=== PATIENT | female | born 1955 | race Caucasian/White ===

== ENCOUNTER → 2017-03-15 | Outpatient (CLI) | payer OTHER | END | disposition home or self-care (01) | LOC: YCFC.O 11:24 | PROVIDERS: ATTEND Nurse Practitioner Family | DX: E11.9 Type 2 diabetes mellitus without complications (principal); I10 Essential (primary) hypertension; E78.5 Hyperlipidemia, unspecified ==

== ENCOUNTER 2018-02-08 18:19 | Emergency (ER) | payer OTHER ==
--- NOTE | 2018-02-08 18:33 | ED.PDOC ---
History of Present Illness - General Chief Complaint: Neuro Symptoms/Deficits Stated Complaint: lightheaded/left arm numbness Time Seen by Provider: 02/08/18 18:33 Source: patient, EMS Exam Limitations: no limitations - History of Present Illness Initial Comments: Thu Wren 62 y/o female brought by ems stating she was watching TV at home became light headed and felt numbness on left hand which went up to right forearm about an hour ago lasting for about 1-2 minutes then on arrival here at ER stating her symptoms better.Denies weakness,slurred speech,facial drooping , chest pains,diaphoresis,or blurry vision,SOB. Severity: moderate Improving Factors: nothing Worsening Factors: nothing Associated Symptoms: other - see hpi Allergies/Adverse Reactions: Allergies NO KNOWN ALLERGY Allergy (Verified 01/18/13 15:20) Home Medications: Ambulatory Orders Cetirizine HCl [ZyrTEC] 10 mg PO DAILY 04/16/16 Ciprofloxacin [Cipro] 500 mg PO BID #20 tab 04/16/16 Crestor PO BEDTIME 04/16/16 Esomeprazole Magnesium [Nexium] 40 mg PO DAILY 04/16/16 Iron PO DAILY 04/16/16 Losartan Potassium PO DAILY 04/16/16 Meclizine HCl PO TID PRN 04/16/16 Toprol Xl PO DAILY 04/16/16 metFORMIN HCL PO BID 04/16/16 metroNIDAZOLE [Flagyl] 500 mg PO Q6HRS #40 tab 04/16/16 Review of Systems - Review of Systems Constitutional: States: no symptoms reported EENTM: States: no symptoms reported Respiratory: States: no symptoms reported Cardiology: States: no symptoms reported Gastrointestinal/Abdominal: States: no symptoms reported Genitourinary: States: no symptoms reported Musculoskeletal: States: no symptoms reported Skin: States: no symptoms reported Neurological: States: see HPI All other Systems: Reviewed and Negative, No Change from Baseline Past Medical History (General) - Patient Medical History Hx Seizures: No Hx Stroke: No Hx Dementia: No Hx Asthma: No Hx of COPD: No Hx Cardiac Disorders: No Hx Congestive Heart Failure: No Hx Pacemaker: No Hx Hypertension: Yes Hx Thyroid Disease: No Hx Diabetes: Yes - NIDDM Hx Gastroesophageal Reflux: Yes Hx Renal Disease: No Hx of HIV: No Hx MRSA: No Surgical History: appendectomy, cholecystectomy, tonsillectomy - Vaccination History Hx Influenza Vaccination: No Hx Pneumococcal Vaccination: Yes - 2013 - Social History Hx Tobacco Use: No Hx Alcohol Use: No Hx Substance Use: No Hx Physical Abuse: No Hx Emotional Abuse: No - Activities of Daily Living Grooming Ability: Independent Eating (Feeding) Ability: Independent Toileting Ability: Independent Family Medical History - Family History Mother Family History: Unknown Living Status: Hx Family Hypertension: Yes - parents Hx Family Diabetes: Yes - parents Physical Exam - Physical Exam General Appearance: Alert, Comfortable, No apparent distress Eye Exam: bilateral normal Ears, Nose, Throat: hearing grossly normal, normal ENT inspection, normal pharynx Neck: non-tender, full range of motion, supple, normal inspection Respiratory: lungs clear, normal breath sounds, no respiratory distress Cardiovascular/Chest: normal peripheral pulses, regular rate, rhythm, no murmur Peripheral Pulses: radial,right: 2+, radial,left: 2+ Gastrointestinal/Abdominal: normal bowel sounds, non tender, soft, no organomegaly Back Exam: no CVA tenderness, no vertebral tenderness Extremity: non-tender, no pedal edema, no calf tenderness Neurologic: internet marketing strategist II-XII nml as tested, no motor/sensory deficits, alert, oriented x 3, other - negative pronator drift Skin Exam: normal color, warm/dry Progress - Progress Progress: 02/08/18 19:09 02/08/18 18:33 Head [CT] Stat Chest,1 View [RAD] Stat URINALYSIS Stat 02/08/18 18:45 EKG STAT 02/08/18 18:53 CARDIAC PANEL,ER Stat HEPATIC FUNCTION PANEL Stat Laboratory Results - last 24 hr 02/08/18 18:53 WBC 6.7 RBC 4.48 Hgb 13.5 Hct 40.6 MCV 90.7 MCH 30.2 MCHC 33.3 RDW 16.2 H Plt Count 194 MPV 10.2 Absolute Neuts (auto) 4.10 Absolute Lymphs (auto) 1.80 Absolute Monos (auto) 0.40 Absolute Eos (auto) 0.30 Absolute Basos (auto) 0.10 Neutrophils % 61.6 Lymphocytes % 26.2 Monocytes % 6.5 Eosinophils % 4.7 Basophils % 1.0 02/08/18 19:09 Vital Signs - 24 hr 02/08/18 18:33 Temperature 99.4 F Pulse Rate [ 94 H right brachial] Blood Pressure 176/106 [right radial] O2 Sat by Pulse 99 Oximetry 02/08/18 20:57 Vital Signs - 24 hr 02/08/18 18:33 Temperature 99.4 F Pulse Rate [ 94 H right brachial] Blood Pressure 176/106 [right radial] O2 Sat by Pulse 99 Oximetry - Results/Orders Results/Orders: 02/08/18 18:33 URINALYSIS Stat 02/08/18 18:45 EKG STAT Laboratory Results - last 24 hr 02/08/18 18:53 WBC 6.7 RBC 4.48 Hgb 13.5 Hct 40.6 MCV 90.7 MCH 30.2 MCHC 33.3 RDW 16.2 H Plt Count 194 MPV 10.2 Absolute Neuts (auto) 4.10 Absolute Lymphs (auto) 1.80 Absolute Monos (auto) 0.40 Absolute Eos (auto) 0.30 Absolute Basos (auto) 0.10 Neutrophils % 61.6 Lymphocytes % 26.2 Monocytes % 6.5 Eosinophils % 4.7 Basophils % 1.0 PT 10.6 INR 0.910 PTT (SP) 32.0 Sodium 141 Potassium 4.0 Chloride 107 Carbon Dioxide 28 Anion Gap 10.0 L BUN 23 H Creatinine 0.86 BUN/Creatinine Ratio 26.7 H Random Glucose 129 H Serum Osmolality 286.6 Calcium 8.9 Magnesium 1.9 Total Bilirubin 0.5 Direct Bilirubin < 0.1 Indirect Bilirubin 0.4 AST 16 ALT 10 Alkaline Phosphatase 72 Creatine Kinase 32 CK-MB (CK-2) 1.1 CK-MB (CK-2) % Not Reportable Troponin I < 0.02 Serum Total Protein 7.2 Albumin 3.5 - EKG/XRAY/CT EKG: Sinus, nonspecific ST T wave Chg Comments: Heart rate 85 CT Ordered: Yes - head-Ct/no infarct or hemorrhage Departure - Departure Clinical Impression: Light headedness, Numbness and tingling in right hand Time of Disposition: 22:45 Disposition: Discharge to Home or Self Care Condition: Fair Departure Forms: ED Discharge - Pt. Copy, Patient Portal Self Enrollment Referrals: Mandy Elizalde NP [Primary Care Provider] - 1-2 Weeks Home Medications: Ambulatory Orders Cetirizine HCl [ZyrTEC] 10 mg PO DAILY 04/16/16 Ciprofloxacin [Cipro] 500 mg PO BID #20 tab 04/16/16 Crestor PO BEDTIME 04/16/16 Esomeprazole Magnesium [Nexium] 40 mg PO DAILY 04/16/16 Iron PO DAILY 04/16/16 Losartan Potassium PO DAILY 04/16/16 Meclizine HCl PO TID PRN 04/16/16 Toprol Xl PO DAILY 04/16/16 metFORMIN HCL PO BID 04/16/16 metroNIDAZOLE [Flagyl] 500 mg PO Q6HRS #40 tab 04/16/16 Additional Instructions: Return to emergency room as needed;Continue with all home meds;Follow up with primary Md 02/11/2018
--- NOTE | 2018-02-08 19:29 | RAD ---
EXAM DESCRIPTION: Chest,1 View CLINICAL HISTORY: numbness COMPARISON: None. FINDINGS: Cardiac silhouette is within normal limits. There is no focal parenchymal or pleural disease. Visualized osseous structures are within normal limits. IMPRESSION: No evidence of acute cardiopulmonary disease. Electronically signed by: Minh Guallpa 02/08/2018 7:28 PM CDT
[2018-02-08] MEDS ORDERED: LABETALOL INJ 5 MG/ML VIAL ONE (19:30)
--- NOTE | 2018-02-08 19:31 | CT ---
EXAM DESCRIPTION: Head CLINICAL HISTORY: dizzy/numbness COMPARISON: None Available TECHNIQUE: Contiguous axial CT images of the head were obtained. Coronal and sagittal reconstructions were created from the axial data. This exam was performed according to our departmental dose-optimization program, which includes automated exposure control, adjustment of the mA and/or kV according to patient size and/or use of iterative reconstruction technique. FINDINGS: There is no evidence of acute mass, mass effect, midline shift or hemorrhage. The ventricles and extra-axial CSF spaces are unremarkable. The brain parenchyma appears normal for the patient's age. No acute abnormalities of the bones is seen. IMPRESSION: No acute intracranial abnormality. Electronically signed by: Minh Guallpa 02/08/2018 7:29 PM CDT
[2018-02-08] MEDS ORDERED: LABETALOL INJ 5 MG/ML VIAL IV ONE (19:40)
[2018-02-08] MEDS ORDERED: amLODIPine BESYLATE 5 MG TAB PO ONE (20:56)
[2018-02-09 02:33] VITALS: BP 167/84; TEMP 98.4; O2SAT 96
== END 2018-02-08 23:10 | disposition home or self-care (01) ==
LOC: ER 18:19
DX: R42 Dizziness and giddiness (principal); R20.0 Anesthesia of skin; I10 Essential (primary) hypertension; E11.9 Type 2 diabetes mellitus without complications; K21.9 Gastro-esophageal reflux disease without esophagitis; Z79.899 Other long term (current) drug therapy

== ENCOUNTER → 2018-02-12 | Outpatient (CLI) | payer OTHER | END | disposition home or self-care (01) | LOC: YCFC.O 15:37 | PROVIDERS: ATTEND Nurse Practitioner Family | DX: E53.8 Deficiency of other specified B group vitamins (principal) ==

== ENCOUNTER → 2018-05-24 | Outpatient (CLI) | payer OTHER | LOC: YCFC.O 09:29 | PROVIDERS: ATTEND Nurse Practitioner Family | DX: E78.5 Hyperlipidemia, unspecified (principal); I10 Essential (primary) hypertension; E11.9 Type 2 diabetes mellitus without complications ==

== ENCOUNTER 2018-05-31 12:08 | Emergency (ER) | payer OTHER ==
[2018-05-31 12:22] VITALS: TEMP 98.6; O2SAT 98
--- NOTE | 2018-05-31 12:24 | ED.PDOC ---
History of Present Illness - General Chief Complaint: Respiratory Problem Stated Complaint: shortness of breath,hands tingling Time Seen by Provider: 05/31/18 12:20 Source: patient, EMS Exam Limitations: no limitations - History of Present Illness Initial Comments: jacques comes in via EMS for shortness of breath. Patient states at about 9:00 she woke up this morning and started feeling her hands and legs tingling. Patient states shortly after that she became short of breath and a considerably worsened at about 11:30. She had no cough, congestion, fever or chills. She denies any nausea or vomiting. She denies any chest pain or discomfort. Patient states she's never had this before and hasn't had asthma or emphysema in the past. She does not use breating treatments and has never had to have oxygen. Patient does know that she has some anemia but takes iron for this and recently it has been fairly well-controlled. Patient has past medical history of diabetes, hypertension, and hyperlipidemia. Patient has arthritis in both knees and states that she thinks the pain she is experiencing now is from her chronic osteoarthritis of her knees. Patient smoked for a couple of years in her 20s but has not since and does not drink or do drugs. Timing/Duration: 1-3 hours Severity: moderate Activities at Onset: rest Possible Cause: no prior episodes Improving Factors: rest Worsening Factors: nothing Associated Symptoms: denies symptoms Respiratory Risk Factors: no cause identified Allergies/Adverse Reactions: Allergies NO KNOWN ALLERGY Allergy (Verified 01/18/13 15:20) Home Medications: Ambulatory Orders Toprol Xl PO DAILY 04/16/16 metFORMIN HCL PO BID 04/16/16 Aspirin [(None)] 325 mg PO QD 05/31/18 Atorvastatin Calcium [Lipitor] 20 mg PO DAILY 05/31/18 Azithromycin Tab [Zithromax] 250 mg PO DAILY #4 tab 05/31/18 Esomeprazole Magnesium [Nexium] 20 mg PO DAILY 05/31/18 Fe Fumarate-Fe Polysaccharide- [Integra] 1 cap PO DAILY 05/31/18 Losartan Potassium & Hydrochlo [Losartan Potassium/Hydroc 100-12.5 mg] 1 tab PO DAILY 05/31/18 Review of Systems - Review of Systems Constitutional: States: no symptoms reported. Denies: chills, diaphoresis, fever, weakness EENTM: States: no symptoms reported. Denies: eye pain, ear pain, throat pain Respiratory: States: short of breath. Denies: cough, wheezing Cardiology: States: no symptoms reported. Denies: chest pain, edema, palpitations Gastrointestinal/Abdominal: States: no symptoms reported. Denies: abdominal pain, diarrhea, nausea, vomiting Genitourinary: States: no symptoms reported Musculoskeletal: States: no symptoms reported Skin: States: no symptoms reported Past Medical History (General) - Patient Medical History Hx Seizures: No Hx Stroke: No Hx Dementia: No Hx Asthma: No Hx of COPD: No Hx Cardiac Disorders: No Hx Congestive Heart Failure: No Hx Pacemaker: No Hx Hypertension: Yes Hx Thyroid Disease: No Hx Diabetes: Yes - NIDDM Hx Gastroesophageal Reflux: Yes Hx Renal Disease: No Hx of HIV: No Hx MRSA: No - Vaccination History Hx Influenza Vaccination: No Hx Pneumococcal Vaccination: Yes - 2013 - Social History Hx Tobacco Use: No Hx Alcohol Use: No Hx Substance Use: No Hx Physical Abuse: No Hx Emotional Abuse: No Family Medical History - Family History Mother Family History: Unknown Living Status: Hx Family Hypertension: Yes - parents Hx Family Diabetes: Yes - parents Physical Exam - Physical Exam General Appearance: Alert, No apparent distress Eyes, Ears, Nose, Throat Exam: PERRL/EOMI, normal ENT inspection, TMs normal Neck: non-tender, full range of motion, supple, normal inspection Respiratory: chest non-tender, lungs clear, normal breath sounds, no respiratory distress, no accessory muscle use Cardiovascular/Chest: normal peripheral pulses, regular rate, rhythm, no edema, no gallop, no JVD, no murmur Peripheral Pulses: radial,right: 2+, radial,left: 2+, dorsalis pedis,right: 2+, dorsalis pedis,left: 2+ Gastrointestinal/Abdominal: normal bowel sounds, non tender, soft, no organomegaly Extremity: normal range of motion, non-tender, other - trace pedal edema Neurologic: business strategist II-XII nml as tested, alert, oriented x 3 Progress - Progress Progress: 05/31/18 12:57 Patient Name: JOHN DELCID Gender: Female Date of : 1955 Referring Physician: SHAY HUGHES Organization: [facility] Accession Number: [id number] Requested Date: May 31, 2018 12:21 Report Status: Final Requested Procedure: 1 Procedure Description: Chest,2 Views Modality: CR Findings Reporting MD: Nima Soriano Fellow MD: Not available Dictation Time: Wash Rack Operator: Not available Lab Rn Date: EXAM DESCRIPTION: Chest,2 Views CLINICAL HISTORY: shortness of breath COMPARISON: Previous study February 08, 2018 single view chest, previous two view chest x-ray May 05, 2010 TECHNIQUE: PA/lateral FINDINGS: On the lateral view, increased density is seen over the lower T-spine suggesting lower lobe pneumonic infiltrate. Correlate with clinical symptoms. Frontal view shows normal sized heart with no congestive failure. Emphysematous hyperexpansion of the upper lobes is seen. Infiltrate seen on the lateral view is not definitely identified but may be in the medial right lung base behind the diaphragm. IMPRESSION: Lateral view suggests lower lobe pneumonic infiltrate, possibly on the right. 05/31/18 13:58 05/31/18 12:30 EKG STAT Laboratory Results WBC 6.9 K/mm3 (4.8-10.8) 05/31/18 12:30 RBC 4.36 M/mm3 (4.20-5.40) 05/31/18 12:30 Hgb 14.3 gm/dL (12.0-16.0) 05/31/18 12:30 Hct 43.5 % (36.0-47.0) 05/31/18 12:30 MCV 99.8 fl (81.0-99.0) H 05/31/18 12:30 MCH 32.8 pg (27.0-31.0) H 05/31/18 12:30 MCHC 32.9 g/dL (33.0-37.0) L 05/31/18 12:30 RDW 14.3 % (11.5-14.5) 05/31/18 12:30 Plt Count 199 K/mm3 (130-400) 05/31/18 12:30 MPV 10.8 fl (7.40-10.4) H 05/31/18 12:30 Absolute Neuts (auto) 5.20 K/uL (1.8-6.8) 05/31/18 12:30 Absolute Lymphs (auto) 1.10 K/uL (1.0-3.4) 05/31/18 12:30 Absolute Monos (auto) 0.30 K/uL (0.2-0.8) 05/31/18 12:30 Absolute Eos (auto) 0.20 K/uL (0.0-0.4) 05/31/18 12:30 Absolute Basos (auto) 0.00 K/uL (0.0-0.1) 05/31/18 12:30 Neutrophils % 76.2 % (42.0-78.0) 05/31/18 12:30 Lymphocytes % 16.6 % (20.0-50.0) L 05/31/18 12:30 Monocytes % 3.9 % (2.0-9.0) 05/31/18 12:30 Eosinophils % 2.9 % (1.0-5.0) 05/31/18 12:30 Basophils % 0.4 % (0.0-2.0) 05/31/18 12:30 PT 10.1 SECONDS (9.3-10.7) 05/31/18 12:30 INR 1.01 (0.9-1.15) 05/31/18 12:30 PTT (SP) 28.5 SECONDS (21.8-31.6) 05/31/18 12:30 Sodium 138 mmol/L (135-145) 05/31/18 12:30 Potassium 3.7 mmol/L (3.6-5.0) 05/31/18 12:30 Chloride 104 mmol/L (101-111) 05/31/18 12:30 Carbon Dioxide 25 mmol/L (21-31) 05/31/18 12:30 Anion Gap 12.7 (12-18) 05/31/18 12:30 BUN 19 mg/dL (7-18) H 05/31/18 12:30 Creatinine 1.07 mg/dL (0.6-1.3) 05/31/18 12:30 BUN/Creatinine Ratio 17.8 (10-20) 05/31/18 12:30 Random Glucose 167 mg/dL (70-105) H 05/31/18 12:30 Serum Osmolality 281.7 mOsm/L (275-295) 05/31/18 12:30 Calcium 8.8 mg/dL (8.4-10.2) 05/31/18 12:30 Magnesium 2.0 mg/dL (1.8-2.5) 05/31/18 12:30 Total Bilirubin 0.6 mg/dL (0.2-1.0) 05/31/18 12:30 AST 21 IU/L (10-42) 05/31/18 12:30 ALT 10 IU/L (10-60) 05/31/18 12:30 Alkaline Phosphatase 77 IU/L (42-121) 05/31/18 12:30 Creatine Kinase 31 IU/L (26-140) 05/31/18 12:30 CK-MB (CK-2) 0.8 ng/mL (0.0-4.4) 05/31/18 12:30 CK-MB (CK-2) % 0.00 % (0.0-4.3) 05/31/18 12:30 Troponin I < 0.02 ng/mL (0.01-0.05) 05/31/18 12:30 Serum Total Protein 7.5 gm/dL (6.4-8.2) 05/31/18 12:30 Albumin 3.6 g/dl (3.2-5.5) 05/31/18 12:30 Globulin 3.9 gm/dL (2.3-3.5) H 05/31/18 12:30 Albumin/Globulin Ratio 0.9 (1.1-1.9) L 05/31/18 12:30 - EKG/XRAY/CT EKG: Sinus, no ST T wave changes Comments: normal Sinus HR 77 with normal axis and normal QTc Departure - Departure Clinical Impression: Pneumonia Qualifiers: Pneumonia type: due to unspecified organism Laterality: right Lung location: lower lobe of lung Qualified Code(s): J18.1 - Lobar pneumonia, unspecified organism Disposition: Discharge to Home or Self Care Condition: Good Departure Forms: ED Discharge - Pt. Copy, Patient Portal Self Enrollment Instructions: DI for Pneumonia -- Adult Diet: diabetic diet Activity: increase activity as tolerated Referrals: Mandy Elizalde NP [Primary Care Provider] - 1-2 Weeks Prescriptions: Azithromycin Tab [Zithromax] 250 mg PO DAILY #4 tab Home Medications: Ambulatory Orders Toprol Xl PO DAILY 04/16/16 metFORMIN HCL PO BID 04/16/16 Aspirin [(None)] 325 mg PO QD 05/31/18 Atorvastatin Calcium [Lipitor] 20 mg PO DAILY 05/31/18 Azithromycin Tab [Zithromax] 250 mg PO DAILY #4 tab 05/31/18 Esomeprazole Magnesium [Nexium] 20 mg PO DAILY 05/31/18 Fe Fumarate-Fe Polysaccharide- [Integra] 1 cap PO DAILY 05/31/18 Losartan Potassium & Hydrochlo [Losartan Potassium/Hydroc 100-12.5 mg] 1 tab PO DAILY 05/31/18 Additional Instructions: return to ER for shortness of breath, chest pain. Follow up with PCP in 2-3 days
--- NOTE | 2018-05-31 12:51 | RAD ---
EXAM DESCRIPTION: Chest,2 Views CLINICAL HISTORY: shortness of breath COMPARISON: Previous study February 08, 2018 single view chest, previous two view chest x-ray May 05, 2010 TECHNIQUE: PA/lateral FINDINGS: On the lateral view, increased density is seen over the lower T-spine suggesting lower lobe pneumonic infiltrate. Correlate with clinical symptoms. Frontal view shows normal sized heart with no congestive failure. Emphysematous hyperexpansion of the upper lobes is seen. Infiltrate seen on the lateral view is not definitely identified but may be in the medial right lung base behind the diaphragm. IMPRESSION: Lateral view suggests lower lobe pneumonic infiltrate, possibly on the right. Electronically signed by: Nima Soriano MD 05/31/2018 12:50 PM CDT
[2018-05-31] MEDS ORDERED: cefTRIAXone SODIUM 1 GM VIAL IM ONE (13:01)
[2018-05-31] MEDS ORDERED: AZITHROMYCIN 250 MG TAB PO ONE (13:01)
[2018-05-31 13:32] VITALS: BP 119/66
== END 2018-05-31 14:29 | disposition home or self-care (01) ==
LOC: ER 12:08
DX: J18.1 Lobar pneumonia, unspecified organism (principal); E11.9 Type 2 diabetes mellitus without complications; I10 Essential (primary) hypertension; K21.9 Gastro-esophageal reflux disease without esophagitis; E78.5 Hyperlipidemia, unspecified; Z79.84 Long term (current) use of oral hypoglycemic drugs; Z79.82 Long term (current) use of aspirin; Z87.891 Personal history of nicotine dependence
CPT/HCPCS: 36415; 71046; 80048; 80053; 82550; 82553; 84484; 85025; 85610; 85730; 93005; J0696; Q0144

== ENCOUNTER 2018-06-04 07:44 | Emergency (ER) | payer OTHER ==
[2018-06-04 07:58] VITALS: TEMP 98.6
--- NOTE | 2018-06-04 08:01 | ED.PDOC ---
History of Present Illness - General Chief Complaint: General Stated Complaint: dizzy Time Seen by Provider: 06/04/18 07:56 Source: patient, EMS Exam Limitations: no limitations - History of Present Illness Initial Comments: Thu Wren 63 y/o female stated that she got dizzy on waking up this am feels like about to passed out then felt hot all over then called up ems .Her BS-101 taken by ems and heart strip NSR-HR 75 no acute changes.Denies chest pains nausea/vomiting,blurry vision.Has DM2,Htn Timing/Duration: 1-3 hours Severity: moderate Improving Factors: rest Worsening Factors: movement Associated Symptoms: other - see hpi Allergies/Adverse Reactions: Allergies NO KNOWN ALLERGY Allergy (Verified 01/18/13 15:20) Home Medications: Ambulatory Orders Toprol Xl PO DAILY 04/16/16 metFORMIN HCL PO BID 04/16/16 Aspirin [(None)] 325 mg PO QD 05/31/18 Atorvastatin Calcium [Lipitor] 20 mg PO DAILY 05/31/18 Azithromycin Tab [Zithromax] 250 mg PO DAILY #4 tab 05/31/18 Esomeprazole Magnesium [Nexium] 20 mg PO DAILY 05/31/18 Fe Fumarate-Fe Polysaccharide- [Integra] 1 cap PO DAILY 05/31/18 Losartan Potassium & Hydrochlo [Losartan Potassium/Hydroc 100-12.5 mg] 1 tab PO DAILY 05/31/18 Review of Systems - Review of Systems Constitutional: States: no symptoms reported EENTM: States: no symptoms reported Respiratory: States: no symptoms reported Cardiology: States: no symptoms reported Gastrointestinal/Abdominal: States: no symptoms reported Genitourinary: States: no symptoms reported Musculoskeletal: States: no symptoms reported Skin: States: no symptoms reported Neurological: States: see HPI, other - dizziness Endocrine: States: no symptoms reported Hematologic/Lymphatic: States: no symptoms reported Past Medical History (General) - Patient Medical History Hx Seizures: No Hx Stroke: No Hx Dementia: No Hx Asthma: No Hx of COPD: No Hx Cardiac Disorders: No Hx Congestive Heart Failure: No Hx Pacemaker: No Hx Hypertension: Yes Hx Thyroid Disease: No Hx Diabetes: Yes - NIDDM Hx Gastroesophageal Reflux: Yes Hx Renal Disease: No Hx of HIV: No Hx MRSA: No Surgical History: appendectomy, cholecystectomy, other - hysterectomy - Vaccination History Hx Influenza Vaccination: No Hx Pneumococcal Vaccination: Yes - 2013 - Social History Hx Tobacco Use: No Hx Alcohol Use: No Hx Substance Use: No Hx Physical Abuse: No Hx Emotional Abuse: No - Activities of Daily Living Patient Lives Alone: No - son Grooming Ability: Independent Eating (Feeding) Ability: Independent Toileting Ability: Independent - Female History Patient is a Female of Child Bearing Age (10 -59 yrs old): Yes Patient : No Family Medical History - Family History Mother Family History: Unknown Living Status: Hx Family Hypertension: Yes - parents Hx Family Diabetes: Yes - parents Hx Family;Other: COPD-dad Physical Exam - Physical Exam General Appearance: Alert, Anxious, Comfortable, No apparent distress Eye Exam: bilateral normal Ears, Nose, Throat: hearing grossly normal, normal ENT inspection, normal pharynx Neck: non-tender, supple, normal inspection Respiratory: chest non-tender, lungs clear, normal breath sounds, no respiratory distress Cardiovascular/Chest: normal peripheral pulses, regular rate, rhythm, no murmur Peripheral Pulses: radial,right: 2+, radial,left: 2+ Gastrointestinal/Abdominal: normal bowel sounds, non tender, soft, no organomegaly Back Exam: no CVA tenderness, no vertebral tenderness Extremity: non-tender, normal inspection, no pedal edema, no calf tenderness Neurologic: alert, oriented x 3, other - speech fluent,no abnormal nystagmus,no pronator drift Skin Exam: normal color, warm/dry Lymphatic: no adenopathy Progress - Progress Progress: 06/04/18 08:07 Vital Signs - 8 hr 06/04/18 07:53 Temperature 98.6 F Pulse Rate [ 84 Apical] Respiratory 18 Rate Blood Pressure 162/93 [Left arm`] O2 Sat by Pulse 97 Oximetry 06/04/18 10:05 felt better no longer feeling dizzy - Results/Orders Results/Orders: 06/04/18 08:02 EKG Assessment DAILY 06/04/18 08:15 [facility] Tray (BOG) ONCE EKG STAT Laboratory Results - last 24 hr 06/04/18 06/04/18 06/04/18 08:28 08:37 08:37 WBC 8.3 RBC 4.30 Hgb 14.0 Hct 42.7 MCV 99.2 H MCH 32.6 H MCHC 32.8 L RDW 14.0 Plt Count 206 MPV 11.0 H Absolute Neuts (auto) 6.30 Absolute Lymphs (auto) 1.20 Absolute Monos (auto) 0.40 Absolute Eos (auto) 0.40 Absolute Basos (auto) 0.10 Neutrophils % 75.8 Lymphocytes % 14.1 L Monocytes % 4.8 Eosinophils % 4.7 Basophils % 0.6 PT 9.7 INR 0.97 PTT (SP) 28.3 Sodium 141 Potassium 3.5 L Chloride 105 Carbon Dioxide 28 Anion Gap 11.5 L BUN 24 H Creatinine 0.98 BUN/Creatinine Ratio 24.5 H Random Glucose 116 H Serum Osmolality 286.3 Calcium 9.3 Magnesium 1.9 Total Bilirubin 0.5 Direct Bilirubin 0.1 Indirect Bilirubin 0.4 AST 16 ALT 9 L Alkaline Phosphatase 81 Creatine Kinase 33 CK-MB (CK-2) 1.0 CK-MB (CK-2) % Not Reportable Troponin I < 0.02 Serum Total Protein 8.0 Albumin 4.1 TSH 3.42 Urine Color Yellow Urine Appearance Clear Urine pH 5.5 Ur Specific [place] 1.020 Urine Protein Negative Urine Glucose (UA) Negative Urine Ketones Negative Urine Blood Negative Urine Nitrite Negative Urine Bilirubin Negative Urine Urobilinogen 0.2 Ur Leukocyte Esterase Negative Urine RBC 1-3 Urine WBC 0 Ur Epithelial Cells 1-3 Urine Bacteria 0 - EKG/XRAY/CT EKG: Sinus, no ST T wave changes Comments: HR-81 NSR XRAY: chest - normal CXR Departure - Departure Clinical Impression: Dizziness Time of Disposition: 10:07 Disposition: Discharge to Home or Self Care Condition: Fair Departure Forms: ED Discharge - Pt. Copy, Patient Portal Self Enrollment Instructions: Dizziness, Nonvertigo, (DC) Referrals: Mandy Elizalde NP [Primary Care Provider] - 1-2 Weeks Home Medications: Ambulatory Orders Toprol Xl PO DAILY 04/16/16 metFORMIN HCL PO BID 04/16/16 Aspirin [(None)] 325 mg PO QD 05/31/18 Atorvastatin Calcium [Lipitor] 20 mg PO DAILY 05/31/18 Azithromycin Tab [Zithromax] 250 mg PO DAILY #4 tab 05/31/18 Esomeprazole Magnesium [Nexium] 20 mg PO DAILY 05/31/18 Fe Fumarate-Fe Polysaccharide- [Integra] 1 cap PO DAILY 05/31/18 Losartan Potassium & Hydrochlo [Losartan Potassium/Hydroc 100-12.5 mg] 1 tab PO DAILY 05/31/18 Additional Instructions: May take home medication Meclizine-25 1-2 tablets every 6 hours as needed for dizziness,Return to emergency room as needed;Follw up with primary Md 05 June 2018 as needed
[2018-06-04] MEDS ORDERED: SODIUM CHLORIDE 0.9% 500ML 500 ML IVS ONE (08:02)
[2018-06-04] MEDS ORDERED: ALPRAZolam 0.25 MG TAB PO ONE (08:02)
[2018-06-04] MEDS ORDERED: DEXAMETHASONE INJ 4 MG/ML VIAL IV ONE (08:02)
[2018-06-04] MEDS ORDERED: PROMETHAZINE HCL INJ 25 MG/ML VIAL IM ONE (08:02)
--- NOTE | 2018-06-04 09:28 | RAD ---
EXAM DESCRIPTION: Chest,1 View CLINICAL HISTORY: 63 years Female, dizzy COMPARISON: May 31, 2018 TECHNIQUE: AP portable chest. FINDINGS: Lungs are clear. No consolidation. Heart normal size. IMPRESSION: Normal. Electronically signed by: Bobby Sherman MD 06/04/2018 9:26 AM CDT
[2018-06-04 10:03] VITALS: O2SAT 99
[2018-06-04 10:17] VITALS: BP 143/72
== END 2018-06-04 10:17 | disposition home or self-care (01) ==
LOC: ER 07:44
DX: R42 Dizziness and giddiness (principal); E11.9 Type 2 diabetes mellitus without complications; K21.9 Gastro-esophageal reflux disease without esophagitis; Z79.82 Long term (current) use of aspirin; Z79.84 Long term (current) use of oral hypoglycemic drugs
CPT/HCPCS: 36415; 71045; 80048; 80076; 81001; 82550; 82553; 84443; 84484; 85025; 85610; 85730; 93005; J1100; J2550; J7040

== ENCOUNTER → 2018-11-22 | Outpatient (CLI) | payer OTHER ==
--- NOTE | 2018-11-22 13:41 | RAD ---
EXAM DESCRIPTION: Chest,2 Views CLINICAL HISTORY: DYSPNEA AT REST COMPARISON: Previous x-ray studies of the chest June 04, 2018, February 08, 2018 and May 05, 2010 TECHNIQUE: PA/lateral FINDINGS: Heart size is normal with normal pulmonary vascularity. No pleural effusion or pneumothorax. On the frontal view, the lungs appear clear with no consolidating infiltrate. Lateral view shows intact sternum and spurring in the lower T-spine. Nodular density overlying the lower T-spine could represent a lung lesion. Correlate with chest CT findings. This is a new development compared to previous lateral chest x-ray May 05, 2010. The lateral chest x-ray from May 2018 showed similar density although somewhat less well-defined more consistent with infiltrate. Present findings are more distinct or focal worrisome for a mass. IMPRESSION: Persistent density overlying the lower T-spine worrisome for nodule/mass. Correlate with chest CT findings. Electronically signed by: Nima Soriano MD 11/22/2018 1:40 PM [facility]
== END ==
LOC: LAB.O 09:27
PROVIDERS: ATTEND Nurse Practitioner Family
DX: R06.02 Shortness of breath (principal); I10 Essential (primary) hypertension; E11.9 Type 2 diabetes mellitus without complications; R53.83 Other fatigue; E78.5 Hyperlipidemia, unspecified; E53.8 Deficiency of other specified B group vitamins

== ENCOUNTER → 2018-11-27 | Outpatient (CLI) | payer OTHER ==
--- NOTE | 2018-11-27 14:49 | CT ---
EXAM DESCRIPTION: Chest w/o Contrast : Computed Tomography. CLINICAL HISTORY: 63 years Female ABNORMAL FINDINGS ON DIAGNOSTIC IMAGING abnormal chest x-ray 11/22/2018. COMPARISON: 2 view chest x-ray 11/22/2018. TECHNIQUE: Spiral-axial scans at 5 x 5 mm intervals through the lungs and thorax without IV contrast. 2.5 x 5 mm lung algorithm axial reconstructions. Sagittal and coronal 2.0 Mm reconstructions. Total Exam DLP: 886.78 mGy-cm. This exam was performed according to our departmental dose-optimization program which includes automated exposure control, adjustment of the mA and/or kV according to patient size and/or use of iterative reconstruction technique; to reduce radiation dose to as low as reasonably achievable (ALARA). Nodule measurements under 10 mm are given as mean value of 3 axes diameters. FINDINGS: Lungs and large airways: 3 mm solid nodule in the superior segment of the right lower lobe near the right major fissure on lung axial series 4, image 39 small subpleural 3 mm nodule versus pleural thickening in the posterior recess of the left lower lobe on lung axial series 4, image [address] scan April 2016. Vague patchy groundglass densities bilaterally. No abnormal nodule, no mass or focal infiltrate. Pleural spaces: No pleural effusion or pneumothorax. Bilateral focal areas of pleural thickening. Mediastinum and [place]: No enlarged nodes or significantly enlarged soft tissue masses. Great vessels and Heart: Atherosclerotic calcifications in the aortic arch and descending thoracic aorta. Also coronary arteries. Soft tissues of neck base, axillae, and chest wall: Enlarged left lobe of the thyroid gland with heterogeneously low-density 1.9 cm nodule in the lower pole. No soft tissue masses or enlarged lymph nodes in the chest wall. Upper abdomen: No fluid or free air in the included peritoneal space. Included spleen and adrenal glands normal size and density. Atherosclerotic calcifications in the aorta. Surgical clips in the gallbladder fossa. Fatty appearance of the pancreas. Osseous structures: Diffuse spondylosis in the included thoracic spine with levoscoliosis. Minimal anterior wedge loss of height at multiple levels. No lytic or blastic lesions. IMPRESSION: 1. Nodular densities which may be related to fissures or pleural in the posterior recess of the left lower lobe. This nodule is stable compared to abdominal CT scan in April 2016. Nodule in the superior segment of the right lower lobe is not clinically significant in appearance or size. [facility] Best Practice recommendations based upon Fleischner Society 2017 recommendations for single solitary pulmonary nodule. Optional CT scan in 12 month interval. Please see below*. * 2017 Fleischner Society Recommendations for Single Solid Lung Nodule Follow-Up based on size (average of long- and short-axis diameters) <6 mm Low-Risk Patient: No routine follow-up <6 mm High-Risk Patient: Optional CT at 12 months. 2. Incidental 1.9 cm nodule in the left thyroid lobe which is larger than the right lobe. [facility] Best Practice recommendations is for thyroid ultrasound follow-up, according to guidelines noted below. 1.Further evaluation by thyroid US recommended for: -Solitary ITN with high risk imaging features (locally invasive nodule or suspicious lymph nodes) -Solitary ITN of any size in pediatric pts. <= 18 years of age -Solitary ITN >= 1 cm in axial plane in pts. between 18 and 35 years of age -Solitary ITN >= 1.5 cm in axial plane in pts >= 35 years of age -Heterogeneous enlarged thyroid gland Recommendations for f/u of Incidental Thyroid Nodules (ITN) found on CT, MR, NM and Extrathyroidal US are based upon the ACR white paper and Valadez 3-tiered system for managing ITNs: J Am Michi Radiol. 2015 Dec;12(2): 143-50 Electronically signed by: Minh Madsen MD 11/27/2018 2:48 PM [facility]
== END ==
LOC: CT 10:01
DX: R93.89 Abnormal findings on diagnostic imaging of other specified body structures (principal); R91.8 Other nonspecific abnormal finding of lung field

== ENCOUNTER → 2018-12-18 | Outpatient (CLI) | payer OTHER ==
--- NOTE | 2018-12-19 09:08 | US ---
US THYROID CLINICAL STATEMENT: E04.1. No palpable mass. No prior thyroid surgery or therapy. COMPARISON: None FINDINGS: Size right thyroid lobe: 4.8 x 2.1 x 1.7. cm Size left thyroid lobe: 4.9 x 3.1 x 2.4 cm Size isthmus: 1.1 cm Estimated total number of nodules greater than or equal to 1 cm: 2 Nodule 1: Size: 1.2 x 1.2 x 1.0 cm Location: Isthmus Mid Composition: solid or almost completely solid: 2 points Echogenicity: hypoechoic: 2 points Shape: wider than tall: 0 points Margins: ill-defined: 0 points Echogenic foci: none: 0 points ACR Total Points: 4; ACR TI-RADS risk category: TR4 - moderately suspicious nodule. Nodule 2: Size: 3.0 x 2.9 x 2.5 cm Location: Left Lower Composition: solid or almost completely solid: 2 points Echogenicity: hyperechoic: 1 point Shape: taller than wide: 3 points Margins: smooth: 0 points Echogenic foci: none: 0 points ACR Total Points: 6; ACR TI-RADS risk category: TR4 - moderately suspicious nodule. The soft tissue around the thyroid gland show no dominant solid mass or distinct cyst. No parenchymal edema or large calcifications. No overlying skin changes. Normal vascularity. IMPRESSION: 1. Nodule 1: ACR TI-RADS 2017 Category TR4. Recommend: Follow-up ultrasound in 1 year.. Recommendations based upon [facility] Best Practice recommendations and ACR TI-RADS 2017 guidelines. Please see below*. 2. Nodule 2: ACR TI-RADS 2017 Category TR4. Recommend: Ultrasound-guided fine needle aspiration 3. Soft tissue around the thyroid gland is unremarkable. *ACR TI-RADS 2017 Recommendations: TR1: No FNA or follow up TR2: No FNA or follow up TR3: FNA if >/= 2.5 cm, follow up if 1.5 - 2.4 cm in 1, 3, and 5 years TR4: FNA if >/= 1.5 cm, follow up if 1.0 - 1.4 cm in 1, 2, 3, and 5 years TR5: FNA if >/= 1.0 cm, follow up if 0.5 - 0.9 cm every year for 5 years ACR TI-RADS recommends that no more than two nodules with the highest ACR TI-RADS total point should be biopsied and no more than four nodules should be followed. Electronically signed by: Minh Madsen MD 12/19/2018 9:06 AM [facility]
== END ==
LOC: US 10:30
PROVIDERS: ATTEND Nurse Practitioner Family
DX: E04.1 Nontoxic single thyroid nodule (principal)

== ENCOUNTER → 2018-12-25 | Outpatient (CLI) | payer OTHER ==
--- NOTE | 2018-12-25 16:29 | US ---
Thyroid Biopsy, Image-Guided: Ultrasound CLINICAL INFORMATION: No palpable mass. No prior thyroid surgery or therapy. TECHNIQUE: Procedure was explained to the patient with risks and benefits. The patient gave verbal and written consent. Sterile preparation draping. 1% xylocaine dermal anesthetic 9-1 mixture with sodium bicarbonate. Sterile ultrasound guidance. A total of 6 passes left thyroid lobe; 3 needle samplings with a separate 1.5 inch, 25-gauge needle per sample, and 3 aspiration, with a separate 1.5 inch, 25-gauge needle/10-cc syringe set, per aspiration. Each sample was placed on a separate slide and fixed in 95% alcohol container. [place] fluid drawn into aspirate needle and rinse injected into [place] container. Specimens to be sent for pathologic examination at remote facility. . Patient tolerated procedure well. Biopsy #: 1 Nodule reference number based on prior diagnostic ultrasound:2 Maximum size: 3.0 cm Location: left; lower ACR TI-RADS risk category: TR4 (4-6 points) Reason for biopsy: meets ACR TI-RADS criteria Complications: None IMPRESSION: Successful ultrasound guided fine needle aspiration and sampling of left thyroid nodule. ACR TI-RADS Risk Category TR 4 Electronically signed by: Minh Madsen MD 12/25/2018 4:26 PM [employer]
== END ==
LOC: US 09:00
PROVIDERS: ATTEND Nurse Practitioner Family
DX: E04.1 Nontoxic single thyroid nodule (principal)

== ENCOUNTER → 2019-04-14 | Outpatient (CLI) | payer OTHER | LOC: YCFC.O 10:01 | PROVIDERS: ATTEND Nurse Practitioner Family | DX: M54.5 Low back pain (principal) ==

== ENCOUNTER → 2019-05-23 | Outpatient (CLI) | payer OTHER ==
--- NOTE | 2019-05-27 10:32 | MAM ---
EXAM DESCRIPTION: 3D Screening BILATERAL : Digital Mammography. CLINICAL HISTORY: 64 years Female SCREEN . No complaints. No personal or family history of breast cancer. Childbirth. Postmenopausal 20+ years. No HRT. Lifetime risk of developing breast cancer (Tyrer-Cuzick model)(%): 5.6. COMPARISON: 2-D digital screening bilateral mammography 12/31/2013. TECHNIQUE: Bilateral CC and MLO projection full-field images, digital tomosynthesis mammographic technique. Bilateral digital 2-D full-field MLO images. CAD not available for tomosynthesis or 2-D images. FINDINGS: The breast parenchymal density pattern is: Scattered areas of fibroglandular density. No skin thickening or nipple retraction. No new focal, stellate mass or density, focal asymmetry , and no suspicious microcalcifications bilaterally. Stable mammograms compared to prior study. Taking into account, differences in mammographic technique. IMPRESSION: BI-RADS CATEGORY: 1 - NEGATIVE FOLLOW UP: Routine digital bilateral screening, one year interval from May 2019. Written communication explaining the findings and follow-up, will be mailed to the patient and referring health care provider. According to the [employer], yearly mammograms are recommended starting at age 40 and continuing as long as a woman is in good health. Any breast change noted on a breast self-exam should be reported promptly to the patient's healthcare provider. Breast MRI is recommended for women with an approximately 20-25% or greater lifetime risk of breast cancer, including women with a strong family history of breast or ovarian cancer and women who have been treated for Hodgkin's disease. A negative mammographic report should not delay tissue diagnosis in patients with significant clinical history or physical findings. Extremely dense breast tissue limits the sensitivity of digital mammography. Electronically signed by: Minh Madsen MD 05/27/2019 10:29 AM CDT
== END ==
LOC: MAMMO 09:00
PROVIDERS: ATTEND Nurse Practitioner Family
DX: Z12.31 Encounter for screening mammogram for malignant neoplasm of breast (principal)

== ENCOUNTER 2019-06-12 08:36 | Emergency (ER) | payer OTHER ==
--- NOTE | 2019-06-12 09:05 | ED.PDOC ---
History of Present Illness - General Chief Complaint: General Stated Complaint: Discomfort across shoulders/neck Time Seen by Provider: 06/12/19 08:54 Source: patient Exam Limitations: no limitations - History of Present Illness Initial Comments: Patient presents with bilateral shoulder pain and midback pain since waking up this morning. She has had tingling in bilateral fingers. She had the same symptoms yesterday but today she had diaphoresis, which was different. Denies chest pain. No cardiac history. Has NIDDM and takes Metformin. No history of tobacco use. She did see her pcp yesterday about this but did not find out what it was. No dyspnea. No other complaints. Timing/Duration: 1-3 hours Severity: mild Improving Factors: nothing Worsening Factors: nothing Associated Symptoms: other - as in HPI Allergies/Adverse Reactions: Allergies NO KNOWN ALLERGY Allergy (Verified 06/12/19 08:56) Home Medications: Ambulatory Orders Atorvastatin Calcium [Lipitor] 20 mg PO DAILY 05/31/18 Esomeprazole Magnesium [Nexium] 20 mg PO DAILY PRN 05/31/18 Fe Fumarate-Fe Polysaccharide- [Integra] 1 cap PO DAILY 05/31/18 Losartan Potassium & Hydrochlo [Losartan Potassium/Hydroc 100-12.5 mg] 1 tab PO DAILY 05/31/18 Aspirin [Aspirin Adult Low Dose] 81 mg PO DAILY 06/12/19 Metoprolol Succinate [Metoprolol Succinate ER] 50 mg PO DAILY 06/12/19 metFORMIN HCL [Glucophage] 500 mg PO DAILY 06/12/19 Review of Systems - Review of Systems Constitutional: States: no symptoms reported EENTM: States: no symptoms reported Respiratory: States: no symptoms reported Cardiology: States: no symptoms reported Gastrointestinal/Abdominal: States: no symptoms reported Genitourinary: States: no symptoms reported Musculoskeletal: States: see HPI Skin: States: no symptoms reported Neurological: States: see HPI Endocrine: States: no symptoms reported Hematologic/Lymphatic: States: no symptoms reported Past Medical History (General) - Patient Medical History Hx Seizures: No Hx Stroke: No Hx Dementia: No Hx Asthma: No Hx of COPD: No Hx Cardiac Disorders: Yes - Hypercholesterolemia Hx Congestive Heart Failure: No Hx Pacemaker: No Hx Hypertension: Yes Hx Thyroid Disease: No Hx Diabetes: Yes Hx Gastroesophageal Reflux: Yes Hx Renal Disease: No Hx Cancer: No Hx of HIV: No Hx Hepatitis C: No Hx MRSA: No Surgical History: appendectomy, cholecystectomy, tonsillectomy, Hysterectomy - Vaccination History Hx Tetanus, Diphtheria Vaccination: No Hx Influenza Vaccination: No Hx Pneumococcal Vaccination: No - Social History Hx Tobacco Use: No Hx Chewing Tobacco Use: No Hx Alcohol Use: No Hx Substance Use: No Hx Substance Use Treatment: No Hx Depression: No Hx Physical Abuse: No Hx Emotional Abuse: No Hx Suspected Abuse: No - Female History Patient : No - Triage Comment ED Triage Comment: Pt attempted to call her PCP this morning to make an appt, and she was instructed to report to the ER for evaluation. Family Medical History - Family History Mother Family History: Unknown Living Status: Hx Family Hypertension: Yes - parents Hx Family Diabetes: Yes - parents Hx Family;Other: COPD-dad Physical Exam - Physical Exam General Appearance: Alert Eye Exam: bilateral normal Ears, Nose, Throat: normal ENT inspection Neck: non-tender, full range of motion, supple Respiratory: lungs clear, normal breath sounds Cardiovascular/Chest: normal peripheral pulses, regular rate, rhythm Gastrointestinal/Abdominal: normal bowel sounds, non tender, soft Back Exam: normal inspection, no CVA tenderness Extremity: normal range of motion, non-tender, normal inspection Neurologic: virtual assistant for advertisers II-XII nml as tested, no motor/sensory deficits, alert, normal mood/affect, oriented x 3 Skin Exam: normal color Lymphatic: no adenopathy Progress - Progress Progress: 06/12/19 13:19 Laboratory Tests 06/12/19 06/12/19 06/12/19 09:00 09:00 09:00 WBC 7.7 RBC 4.40 Hgb 13.8 Hct 41.8 MCV 95.0 MCH 31.4 H MCHC 33.1 RDW 16.7 H Plt Count 184 MPV 11.6 H Absolute Neuts (auto) 5.70 Absolute Lymphs (auto) 1.20 Absolute Monos (auto) 0.40 Absolute Eos (auto) 0.40 Absolute Basos (auto) 0.10 Neutrophils % 74.2 Lymphocytes % 15.1 L Monocytes % 5.0 Eosinophils % 4.9 Basophils % 0.8 PT 9.5 INR 0.95 PTT (SP) 26.0 Sodium 140 Potassium 3.5 L Chloride 107 Carbon Dioxide 23 Anion Gap 13.5 BUN 27 H Creatinine 1.37 H BUN/Creatinine Ratio 19.7 Random Glucose 148 H Serum Osmolality 287.3 Lactic Acid Calcium 8.8 Magnesium Total Bilirubin 0.5 AST 41 ALT 32 Alkaline Phosphatase 62 Creatine Kinase 43 CK-MB (CK-2) 1.4 CK-MB (CK-2) % Not Reportable Troponin I < 0.02 Serum Total Protein 7.5 Albumin 3.8 Globulin 3.7 H Albumin/Globulin Ratio 1.0 L TSH Thyroxine (T4) Urine Color Urine Appearance Urine pH Ur Specific [place] Urine Protein Urine Glucose (UA) Urine Ketones Urine Blood Urine Nitrite Urine Bilirubin Urine Urobilinogen Ur Leukocyte Esterase Urine RBC Urine WBC Ur Epithelial Cells Urine Bacteria Urine Mucus Urine Yeast 06/12/19 06/12/19 06/12/19 09:00 09:00 09:10 WBC RBC Hgb Hct MCV MCH MCHC RDW Plt Count MPV Absolute Neuts (auto) Absolute Lymphs (auto) Absolute Monos (auto) Absolute Eos (auto) Absolute Basos (auto) Neutrophils % Lymphocytes % Monocytes % Eosinophils % Basophils % PT INR PTT (SP) Sodium Potassium Chloride Carbon Dioxide Anion Gap BUN Creatinine BUN/Creatinine Ratio Random Glucose Serum Osmolality Lactic Acid 1.2 Calcium Magnesium 2.0 Total Bilirubin AST ALT Alkaline Phosphatase Creatine Kinase CK-MB (CK-2) CK-MB (CK-2) % Troponin I Serum Total Protein Albumin Globulin Albumin/Globulin Ratio TSH 3.08 Thyroxine (T4) 9.53 Urine Color Urine Appearance Urine pH Ur Specific [place] Urine Protein Urine Glucose (UA) Urine Ketones Urine Blood Urine Nitrite Urine Bilirubin Urine Urobilinogen Ur Leukocyte Esterase Urine RBC Urine WBC Ur Epithelial Cells Urine Bacteria Urine Mucus Urine Yeast 06/12/19 06/12/19 10:19 11:50 WBC RBC Hgb Hct MCV MCH MCHC RDW Plt Count MPV Absolute Neuts (auto) Absolute Lymphs (auto) Absolute Monos (auto) Absolute Eos (auto) Absolute Basos (auto) Neutrophils % Lymphocytes % Monocytes % Eosinophils % Basophils % PT INR PTT (SP) Sodium Potassium Chloride Carbon Dioxide Anion Gap BUN Creatinine BUN/Creatinine Ratio Random Glucose Serum Osmolality Lactic Acid Calcium Magnesium Total Bilirubin AST ALT Alkaline Phosphatase Creatine Kinase CK-MB (CK-2) CK-MB (CK-2) % Troponin I < 0.02 Serum Total Protein Albumin Globulin Albumin/Globulin Ratio TSH Thyroxine (T4) Urine Color Yellow Urine Appearance Sl cloudy Urine pH 5.5 Ur Specific [place] 1.025 Urine Protein Negative Urine Glucose (UA) Negative Urine Ketones Negative Urine Blood Negative Urine Nitrite Negative Urine Bilirubin Negative Urine Urobilinogen 0.2 Ur Leukocyte Esterase Trace H Urine RBC 0-1 Urine WBC 5-10 H Ur Epithelial Cells 3-5 Urine Bacteria Rare Urine Mucus Trace Urine Yeast Rare EKG showed NSR with no ST changes nor T wave inversions. No LBBB. CXR wnl. Troponins x two negative. Likely musculoskeletal. Patient instructed to follow up with her pcp. 06/12/19 13:21 Care instructions given. E.R. warnings given. Questions were elicited and answered. Patient voiced understanding and agreement with the plan. Departure - Departure Clinical Impression: Paresthesia and pain of both upper extremities Disposition: Discharge to Home or Self Care Condition: Good Departure Forms: ED Discharge - Pt. Copy, Patient Portal Self Enrollment Diet: other - as per your regular physician Activity: increase activity as tolerated Referrals: Mandy Elizalde, MECHANICAL DESIGN TECHNICIAN [Primary Care Provider] - 1-2 Weeks Home Medications: Ambulatory Orders Atorvastatin Calcium [Lipitor] 20 mg PO DAILY 05/31/18 Esomeprazole Magnesium [Nexium] 20 mg PO DAILY PRN 05/31/18 Fe Fumarate-Fe Polysaccharide- [Integra] 1 cap PO DAILY 05/31/18 Losartan Potassium & Hydrochlo [Losartan Potassium/Hydroc 100-12.5 mg] 1 tab PO DAILY 05/31/18 Aspirin [Aspirin Adult Low Dose] 81 mg PO DAILY 06/12/19 Metoprolol Succinate [Metoprolol Succinate ER] 50 mg PO DAILY 06/12/19 metFORMIN HCL [Glucophage] 500 mg PO DAILY 06/12/19 Additional Instructions: See your regular physician about your symptoms. Return to the E.R. for chest pain or shortness of breath. Critical Care Note - Critical Care Note Total Time (mins): 35
[2019-06-12] MEDS: ASPIRIN (CHEWABLE) 81 MG TAB PO ONE (09:11)
--- NOTE | 2019-06-12 09:27 | RAD ---
EXAM DESCRIPTION: Chest,1 View CLINICAL HISTORY: 64 years Female, diaphoresis, back and shoulder pain in diabetic COMPARISON: Previous study March 27, 2019 TECHNIQUE: AP portable chest. FINDINGS: Heart size is prominent with normal pulmonary vascularity. Widened superior mediastinum is unchanged compared to previous exam. Patient had a CTA of the chest March 27, 2019 which showed a large left thyroid lobe. Tortuous right subclavian artery was noted which is evidently contributing to the appearance of superior mediastinal widening. No consolidating infiltrate. No pulmonary mass or worrisome nodule. No pneumothorax or pleural effusion. Bones are unremarkable. IMPRESSION: No acute process is identified in the chest. Electronically signed by: Nima Soriano MD 06/12/2019 9:26 AM CDT
[2019-06-12] MEDS: SODIUM CHLORIDE 0.9% 1000ML 1,000 ML IVS ONE (10:32)
[2019-06-12 13:38] VITALS: BP 137/71; TEMP 97.4
[2019-06-12 14:42] VITALS: O2SAT 99
== END 2019-06-12 13:45 | disposition home or self-care (01) ==
LOC: ER 08:36
DX: R20.2 Paresthesia of skin (principal); M25.511 Pain in right shoulder; M25.512 Pain in left shoulder; M54.6 Pain in thoracic spine; E78.00 Pure hypercholesterolemia, unspecified; I10 Essential (primary) hypertension; E11.9 Type 2 diabetes mellitus without complications; K21.9 Gastro-esophageal reflux disease without esophagitis; Z79.84 Long term (current) use of oral hypoglycemic drugs; Z79.82 Long term (current) use of aspirin; Z79.899 Other long term (current) drug therapy
CPT/HCPCS: 36415; 71045; 80053; 81001; 82550; 82553; 83605; 83735; 84436; 84443; 84484; 85025; 85610; 85730; 93005; J7030

== ENCOUNTER 2019-08-15 18:17 | Emergency (ER) | payer OTHER ==
[2019-08-15 19:13] VITALS: O2SAT 98
[2019-08-15] MEDS ORDERED: ACETAMINOPHEN 500 MG TAB PO ONE (19:19)
[2019-08-15] MEDS ORDERED: CYCLOBENZAPRINE HCL 10 MG TAB PO ONE (19:19)
--- NOTE | 2019-08-15 21:03 | ED.PDOC ---
History of Present Illness - General Chief Complaint: ENT Problem Stated Complaint: left side neck pain, and ear pain Time Seen by Provider: 08/15/19 19:18 Source: patient - History of Present Illness Initial Comments: 64yo F who presents with left sided neck and ear pain noted today. The patient reports the neck pain is recurrent. She frequently gets a kink in her neck that she needs to work out. That happened today and her symptoms have improved, but she reports a residual tightness along her posterolateral neck on the left. The patient also reports nasal congestion and fullness in her left ear causing discomfort. She reports hx of allergies subsequently causing ear infection. She denies chest pain, fever, cough, SOB, weakness, numbness or injury. No other reported issues. Severity: moderate Worsening Factors: movement Allergies/Adverse Reactions: Allergies NO KNOWN ALLERGY Allergy (Verified 06/12/19 08:56) Home Medications: Ambulatory Orders Atorvastatin Calcium [Lipitor] 20 mg PO DAILY 05/31/18 Esomeprazole Magnesium [Nexium] 20 mg PO DAILY PRN 05/31/18 Fe Fumarate-Fe Polysaccharide- [Integra] 1 cap PO DAILY 05/31/18 Losartan Potassium & Hydrochlo [Losartan Potassium/Hydroc 100-12.5 mg] 1 tab PO DAILY 05/31/18 Aspirin [Aspirin Adult Low Dose] 81 mg PO DAILY 06/12/19 Metoprolol Succinate [Metoprolol Succinate ER] 50 mg PO DAILY 06/12/19 metFORMIN HCL [Glucophage] 500 mg PO DAILY 06/12/19 Cetirizine HCl [Zyrtec Allergy] 5 mg PO DAILY #30 tab 08/15/19 Cyclobenzaprine HCl [Flexeril] 5 mg PO TID #30 tab 08/15/19 Mometasone Furoate (Nasal) [Nasonex] 50 mcg NA DAILY #1 spr 08/15/19 RX: Amoxicillin 500 mg PO TID 7 Days #21 cap 08/15/19 Review of Systems - Review of Systems Constitutional: Denies: chills, fever EENTM: States: ear pain, nose congestion. Denies: eye pain, double vision Respiratory: Denies: cough, short of breath Cardiology: Denies: chest pain, palpitations Gastrointestinal/Abdominal: Denies: abdominal pain, nausea, vomiting Musculoskeletal: Denies: back pain, joint pain Neurological: States: headache. Denies: anxiety, numbness, paresthesia, weakness Endocrine: Denies: increased thirst, unexplained weight loss Past Medical History (General) - Patient Medical History Hx Seizures: No Hx Stroke: No Hx Dementia: No Hx Asthma: No Hx of COPD: No Hx Cardiac Disorders: Yes - Hypercholesterolemia Hx Congestive Heart Failure: No Hx Pacemaker: No Hx Hypertension: Yes Hx Thyroid Disease: No Hx Diabetes: Yes Hx Gastroesophageal Reflux: Yes Hx Renal Disease: No Hx Cancer: No Hx of HIV: No Hx Hepatitis C: No Hx MRSA: No Surgical History: appendectomy, cholecystectomy, tonsillectomy, Hysterectomy - Vaccination History Hx Tetanus, Diphtheria Vaccination: No Hx Influenza Vaccination: No Hx Pneumococcal Vaccination: No - Social History Hx Tobacco Use: Yes Hx Chewing Tobacco Use: No Hx Alcohol Use: No Hx Substance Use: No Hx Substance Use Treatment: No Hx Depression: No Hx Physical Abuse: No Hx Emotional Abuse: No Hx Suspected Abuse: No - Female History Patient : No Family Medical History - Family History Mother Family History: Unknown Living Status: Hx Family Hypertension: Yes - parents Hx Family Diabetes: Yes - parents Hx Family;Other: COPD-dad Physical Exam - Physical Exam General Appearance: Alert, No apparent distress Eye Exam: bilateral normal Ears, Nose, Throat: normal pharynx, abnormal TM (L) - Serous fluid behind the TM, nasal congestion Neck: full range of motion, supple, other - L lateral muscular tenderness, no mass, no color change. 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 08/15/19 21:36 The patient reports much improved left lateral neck discomfort with ED treatment. Her ear pain is likely allergy associated serous otitis. Allergy targeted medications prescribed. Abx prescribed with delayed admin instructions. The patient has an unremarkable EKG. She has no chest pain. Low suspicion for cardiac etiology. Neuro exam is non-focal. Results discussed. The patient is comfortable with the plan for discharge and close outpatient follow up as needed. Given the recurrent nature of her neck discomfort I discussed that PCP follow up for ongoing assessment is advised. We discussed indications for return to the ER including worsening symptoms, new symptoms or any other concerns. It was a pleasure to care for this patient. 08/15/19 21:40 - EKG/XRAY/CT EKG: Sinus - 76, no ST T wave changes Comments: Nl axis, nl intervals. Departure - Departure Clinical Impression: Neck pain on left side, Otitis media, serous, Allergic rhinitis Time of Disposition: 20:57 Disposition: Discharge to Home or Self Care Condition: Good Departure Forms: ED Discharge - Pt. Copy, Patient Portal Self Enrollment Instructions: DI for Ear Pain-Adult, Seasonal Allergies in Adults Referrals: Mandy Elizalde, [employer] [Primary Care Provider] - 1-2 Weeks Prescriptions: RX: Amoxicillin 500 mg PO TID 7 Days #21 cap Cetirizine HCl [Zyrtec Allergy] 5 mg PO DAILY #30 tab Cyclobenzaprine HCl [Flexeril] 5 mg PO TID #30 tab Mometasone Furoate (Nasal) [Nasonex] 50 mcg NA DAILY #1 spr Home Medications: Ambulatory Orders Atorvastatin Calcium [Lipitor] 20 mg PO DAILY 05/31/18 Esomeprazole Magnesium [Nexium] 20 mg PO DAILY PRN 05/31/18 Fe Fumarate-Fe Polysaccharide- [Integra] 1 cap PO DAILY 05/31/18 Losartan Potassium & Hydrochlo [Losartan Potassium/Hydroc 100-12.5 mg] 1 tab PO DAILY 05/31/18 Aspirin [Aspirin Adult Low Dose] 81 mg PO DAILY 06/12/19 Metoprolol Succinate [Metoprolol Succinate ER] 50 mg PO DAILY 06/12/19 metFORMIN HCL [Glucophage] 500 mg PO DAILY 06/12/19 Cetirizine HCl [Zyrtec Allergy] 5 mg PO DAILY #30 tab 08/15/19 Cyclobenzaprine HCl [Flexeril] 5 mg PO TID #30 tab 08/15/19 Mometasone Furoate (Nasal) [Nasonex] 50 mcg NA DAILY #1 spr 08/15/19 RX: Amoxicillin 500 mg PO TID 7 Days #21 cap 08/15/19
[2019-08-15 21:42] VITALS: BP 157/93; TEMP 98.2
== END 2019-08-15 21:42 | disposition home or self-care (01) ==
LOC: ER 18:17
DX: M54.2 Cervicalgia (principal); H65.92 Unspecified nonsuppurative otitis media, left ear; J30.9 Allergic rhinitis, unspecified; E78.00 Pure hypercholesterolemia, unspecified; I10 Essential (primary) hypertension; E11.9 Type 2 diabetes mellitus without complications; K21.9 Gastro-esophageal reflux disease without esophagitis; Z87.891 Personal history of nicotine dependence; Z79.82 Long term (current) use of aspirin; Z79.84 Long term (current) use of oral hypoglycemic drugs; Z79.899 Other long term (current) drug therapy

== ENCOUNTER → 2019-12-16 | Outpatient (CLI) | payer OTHER | LOC: LAB.O 09:49 | PROVIDERS: ATTEND Family Medicine | DX: D75.89 Other specified diseases of blood and blood-forming organs (principal); E11.9 Type 2 diabetes mellitus without complications; I10 Essential (primary) hypertension; E55.9 Vitamin D deficiency, unspecified ==

== ENCOUNTER 2020-09-10 11:44 | Emergency (ER) | payer OTHER ==
[2020-09-10] MEDS ORDERED: KETOROLAC TROMETHAMINE INJ 30 MG/ML VIAL IM ONE (11:56)
[2020-09-10] MEDS ORDERED: ONDANSETRON ODT 8 MG TAB SL ONE (11:57)
[2020-09-10 12:07] VITALS: TEMP 97.4
--- NOTE | 2020-09-10 13:10 | CT ---
EXAM DESCRIPTION: Abdoment/Pelvis w/o Contrast CLINICAL HISTORY: 65 years, Female, left sided abd pain 8 hrs COMPARISON: Previous CT abdomen and pelvis April 16, 2016 TECHNIQUE: CT of the abdomen and pelvis is performed according to our non contrast protocol. FINDINGS: The lung bases are clear. Heart size is normal. 3 mm granuloma in the posterior basal segment left lower lobe appears benign. Question mild hepatic steatosis with slightly decreased density of the liver. Otherwise the liver, spleen, and pancreas are unremarkable. Gallbladder surgically absent. Left adrenal gland appears normal. Small adenoma in the right adrenal gland incidentally noted 1.2 cm. The right kidney appears small and contains a single calculus 3 mm in the lower calyx which is nonobstructing. The left kidney also contains multiple stones. Two 2 mm calculi in the lower calyx of the left kidney. Left-sided hydronephrosis is present with mild edema around the left kidney. Following the left ureter distally, the ureter is increased in caliber and contains a distal stone approximately 2 to 3 mm above the left ureterovesical junction. This stone measures 3 mm in diameter.. Small bowel loops appear normal in caliber with normal wall thickness. There is no lymphadenopathy, inflammation, or free fluid observed. In the pelvis, the appendix is not seen and may be surgically absent. No inflammation around the cecum or terminal ileum or sigmoid colon. No stones in the distal ureters or bladder. Rectal wall thickness is normal for degree of distention. No free fluid or mass in the pelvis. Uterus and ovaries are not seen, evidently surgically absent. No inguinal or lower pelvic adenopathy. Coronal and sagittal reformatted images confirm the findings. IMPRESSION: Left hydroureteronephrosis with 3 mm calculus in the distal left ureter. Additional bilateral nonobstructing bilateral renal stones. This exam was performed according to our departmental dose-optimization program, which includes automated exposure control, adjustment of the mA and/or kV according to patient size and/or use of iterative reconstruction technique. Total DLP equals 1336.73 mGycm. Electronically signed by: Nima Soriano MD 09/10/2020 1:08 PM [facility]
[2020-09-10] MEDS ORDERED: SODIUM CHLORIDE 0.9% 1000ML 1,000 ML IVS ONE (13:32)
[2020-09-10] MEDS ORDERED: TAMSULOSIN 0.4 MG CAP PO ONE (13:32)
[2020-09-10] MEDS ORDERED: SODIUM CHLORIDE 0.9% (FLUSH) 10 ML SYG ONE (13:40)
--- NOTE | 2020-09-10 14:00 | ED.PDOC ---
History of Present Illness - General Chief Complaint: Abdominal Pain Stated Complaint: LLQ abdominal pain Time Seen by Provider: 09/10/20 11:46 Source: patient Exam Limitations: no limitations - History of Present Illness Initial Comments: The patient is a 65-year-old female presented to the emergency room after about 8 hours of left flank and lower abdominal pain. Increased urinary frequency and mild dysuria. She has had kidney stones before. No definite fevers. When the pain is bad she does have nausea. No symptoms prior to that. Timing/Duration: other Severity: severe Improving Factors: nothing Worsening Factors: nothing Associated Symptoms: malaise, nausea/vomiting Allergies/Adverse Reactions: Allergies NO KNOWN ALLERGY Allergy (Verified 09/10/20 12:07) Home Medications: Ambulatory Orders Atorvastatin Calcium [Lipitor] 20 mg PO DAILY 05/31/18 Esomeprazole Magnesium [Nexium] 20 mg PO DAILY PRN 05/31/18 Fe Fumarate-Fe Polysaccharide- [Integra] 1 cap PO DAILY 05/31/18 Losartan Potassium & Hydrochlo [Losartan Potassium/Hydroc 100-12.5 mg] 1 tab PO DAILY 05/31/18 Aspirin [Aspirin Adult Low Dose] 81 mg PO DAILY 06/12/19 Metoprolol Succinate [Metoprolol Succinate ER] 50 mg PO DAILY 06/12/19 metFORMIN HCL [Glucophage] 500 mg PO DAILY 06/12/19 Amoxicillin 500 mg PO TID 7 Days #21 cap 08/15/19 Cetirizine HCl [Zyrtec Allergy] 5 mg PO DAILY #30 tab 08/15/19 Cyclobenzaprine HCl [Flexeril] 5 mg PO TID #30 tab 08/15/19 Mometasone Furoate (Nasal) [Nasonex] 50 mcg NA DAILY #1 spr 08/15/19 Ciprofloxacin [Cipro] 500 mg PO BID #6 tab 09/10/20 Tamsulosin HCl [Flomax] 0.4 mg PO DAILY #7 cap 09/10/20 Review of Systems - Review of Systems Constitutional: States: no symptoms reported EENTM: States: no symptoms reported Respiratory: States: no symptoms reported Cardiology: States: no symptoms reported Gastrointestinal/Abdominal: States: see HPI Genitourinary: States: see HPI Musculoskeletal: States: see HPI Skin: States: no symptoms reported Neurological: States: no symptoms reported Endocrine: States: no symptoms reported All other Systems: No Change from Baseline Past Medical History (General) - Patient Medical History Hx Seizures: No Hx Stroke: No Hx Dementia: No Hx Asthma: No Hx of COPD: No Hx Cardiac Disorders: No Hx Congestive Heart Failure: No Hx Pacemaker: No Hx Hypertension: Yes Hx Thyroid Disease: No Hx Diabetes: Yes Hx Gastroesophageal Reflux: Yes Hx Renal Disease: No Hx Cancer: No Hx of HIV: No Hx Hepatitis C: No Hx MRSA: No Surgical History: appendectomy, cholecystectomy, Hysterectomy - Vaccination History Hx Tetanus, Diphtheria Vaccination: No Hx Influenza Vaccination: Yes Hx Pneumococcal Vaccination: Yes - Social History Hx Tobacco Use: Yes Hx Chewing Tobacco Use: No Hx Alcohol Use: No Hx Substance Use: No Hx Substance Use Treatment: No Hx Depression: No Hx Physical Abuse: No Hx Emotional Abuse: No Hx Suspected Abuse: No - Female History Patient is a Female of Child Bearing Age (10 -59 yrs old): No Patient : No Family Medical History - Family History Mother Family History: Unknown Living Status: Hx Family Hypertension: Yes - parents Hx Family Diabetes: Yes - parents Hx Family;Other: COPD-dad Physical Exam - Physical Exam General Appearance: Alert, Restless Eye Exam: bilateral normal Ears, Nose, Throat: hearing grossly normal, normal pharynx Neck: non-tender, supple Respiratory: lungs clear, normal breath sounds, no respiratory distress, no accessory muscle use Cardiovascular/Chest: normal peripheral pulses, regular rate, rhythm, no edema Peripheral Pulses: radial,right: 2+, radial,left: 2+ Gastrointestinal/Abdominal: non tender, soft Rectal Exam: deferred Back Exam: CVA tenderness (L) Extremity: non-tender, normal inspection, no pedal edema, normal capillary refill 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 The patient is going to be written for 3 days of ciprofloxacin as well as 5 days of Flomax. She needs to increase her fluid intake. There is no obvious infection at this point. Anti-inflammatory such as Motrin or Aleve can also help. ER warnings are given for any significant worsening. We do expect the stone to pass without any need for surgical intervention. juan [email or web address] [id number] - Results/Orders Results/Orders: CT scan of abdomen pelvis shows a 3 mm stone at the left ureterovesicular junction. Laboratory Tests 09/10/20 09/10/20 09/10/20 12:30 12:30 12:30 WBC 12.1 H RBC 5.36 Hgb 14.7 Hct 44.4 MCV 82.9 MCH 27.5 MCHC 33.1 RDW 14.3 Plt Count 232 MPV 11.1 H Absolute Neuts (auto) 10.80 H Absolute Lymphs (auto) 0.80 L Absolute Monos (auto) 0.30 Absolute Eos (auto) 0.10 Absolute Basos (auto) 0.10 Neutrophils % 89.2 H Lymphocytes % 6.9 L Monocytes % 2.4 Eosinophils % 1.1 Basophils % 0.4 Sodium 134 L Potassium 3.9 Chloride 95 L Carbon Dioxide 24 Anion Gap 18.9 H BUN 26 H Creatinine 1.18 BUN/Creatinine Ratio 22.0 H Random Glucose 258 H Serum Osmolality 281.9 Lactic Acid 1.7 Calcium 9.5 Magnesium 1.4 L Total Bilirubin 0.6 AST 25 ALT 15 Alkaline Phosphatase 73 Serum Total Protein 7.6 Albumin 3.8 Globulin 3.8 H Albumin/Globulin Ratio 1.0 L Amylase 42 Lipase 26 Urine Color Urine Appearance Urine pH Ur Specific Cow[place] Urine Protein Urine Glucose (UA) Urine Ketones Urine Blood Urine Nitrite Urine Bilirubin Urine Urobilinogen Ur Leukocyte Esterase Urine RBC Urine WBC Ur Epithelial Cells Urine Bacteria 09/10/20 12:30 WBC RBC Hgb Hct MCV MCH MCHC RDW Plt Count MPV Absolute Neuts (auto) Absolute Lymphs (auto) Absolute Monos (auto) Absolute Eos (auto) Absolute Basos (auto) Neutrophils % Lymphocytes % Monocytes % Eosinophils % Basophils % Sodium Potassium Chloride Carbon Dioxide Anion Gap BUN Creatinine BUN/Creatinine Ratio Random Glucose Serum Osmolality Lactic Acid Calcium Magnesium Total Bilirubin AST ALT Alkaline Phosphatase Serum Total Protein Albumin Globulin Albumin/Globulin Ratio Amylase Lipase Urine Color Yellow Urine Appearance Sl cloudy Urine pH 5.0 Ur Specific [place]ley >= 1.030 Urine Protein Trace Urine Glucose (UA) Negative Urine Ketones Trace Urine Blood Trace-lysed H Urine Nitrite Negative Urine Bilirubin Small H Urine Urobilinogen 0.2 Ur Leukocyte Esterase Trace H Urine RBC 0-1 Urine WBC 0-1 Ur Epithelial Cells 30-40 Urine Bacteria Rare Departure - Departure Clinical Impression: Kidney stone on left side Disposition: Discharge to Home or Self Care Condition: Fair Departure Forms: ED Discharge - Pt. Copy, Patient Portal Self Enrollment Instructions: DI for Abdominal Pain-Adult, Kidney Stones (DC) Diet: regular diet Activity: increase activity as tolerated Referrals: Prisca Jeter MD [Primary Care Provider] - 1-2 Weeks Prescriptions: Ciprofloxacin [Cipro] 500 mg PO BID #6 tab Tamsulosin HCl [Flomax] 0.4 mg PO DAILY #7 cap Home Medications: Ambulatory Orders Atorvastatin Calcium [Lipitor] 20 mg PO DAILY 05/31/18 Esomeprazole Magnesium [Nexium] 20 mg PO DAILY PRN 05/31/18 Fe Fumarate-Fe Polysaccharide- [Integra] 1 cap PO DAILY 05/31/18 Losartan Potassium & Hydrochlo [Losartan Potassium/Hydroc 100-12.5 mg] 1 tab PO DAILY 05/31/18 Aspirin [Aspirin Adult Low Dose] 81 mg PO DAILY 06/12/19 Metoprolol Succinate [Metoprolol Succinate ER] 50 mg PO DAILY 06/12/19 metFORMIN HCL [Glucophage] 500 mg PO DAILY 06/12/19 Amoxicillin 500 mg PO TID 7 Days #21 cap 08/15/19 Cetirizine HCl [Zyrtec Allergy] 5 mg PO DAILY #30 tab 08/15/19 Cyclobenzaprine HCl [Flexeril] 5 mg PO TID #30 tab 08/15/19 Mometasone Furoate (Nasal) [Nasonex] 50 mcg NA DAILY #1 spr 08/15/19 Ciprofloxacin [Cipro] 500 mg PO BID #6 tab 09/10/20 Tamsulosin HCl [Flomax] 0.4 mg PO DAILY #7 cap 09/10/20 Additional Instructions: The patient is a 65-year-old female presented emergency room secondary to left sided abdominal and flank pain that appears to be due to a 3 mm stone that is almost down to the bladder. The patient is going to be written for 3 days of ciprofloxacin as well as 5 days of Flomax. She needs to increase her fluid intake. There is no obvious infection at this point. Anti-inflammatory such as Motrin or Aleve can also help. ER warnings are given for any significant worsening. We do expect the stone to pass without any need for surgical intervention.
[2020-09-10 15:43] VITALS: BP 149/88; O2SAT 99
== END 2020-09-10 14:09 | disposition home or self-care (01) ==
LOC: ER 11:44
DX: N13.2 Hydronephrosis with renal and ureteral calculous obstruction (principal); K21.9 Gastro-esophageal reflux disease without esophagitis; I10 Essential (primary) hypertension; E11.9 Type 2 diabetes mellitus without complications; Z90.49 Acquired absence of other specified parts of digestive tract; Z79.899 Other long term (current) drug therapy; Z79.82 Long term (current) use of aspirin; Z79.84 Long term (current) use of oral hypoglycemic drugs; Z87.442 Personal history of urinary calculi
CPT/HCPCS: 36415; 74176; 80053; 81001; 82150; 83605; 83690; 83735; 85025; 87040; A4216; J1885; J7030

== ENCOUNTER → 2021-01-04 | Outpatient (CLI) | payer OTHER | LOC: YCFC.O 09:34 | PROVIDERS: ATTEND Family Medicine | DX: E11.9 Type 2 diabetes mellitus without complications (principal); I10 Essential (primary) hypertension; E78.5 Hyperlipidemia, unspecified; E53.8 Deficiency of other specified B group vitamins; E55.9 Vitamin D deficiency, unspecified ==